=== PATIENT | female | born 1995 | race Caucasian/White ===

== ENCOUNTER 2018-10-05 07:28 | Emergency (ER) | payer MEDICAID ==
[~2018-10-05] VITALS: Ht 160 cm; Wt 89.4 kg
--- NOTE | 2018-10-05 07:41 | NUR ---
PT TO ER BED 9
[2018-10-05 07:42] VITALS: BP 125/72
--- NOTE | 2018-10-05 07:43 | NUR ---
BIB SELF. AAOX4. C/O NAUSEA AND VOMITING SINCE YESTERDAY AFTER EATING OUT AT A [employer]. NO FEVER. PT STATES DIZZINESS AND SOB AT TIMES. PT IS COOL TO TOUCH AND DIAPHORETIC. PT STATES HASN'T EATEN TODAY AND CANNOT TAKE FLUIDS DOWN. HOB UP. BED SIDE RAILS UP X1. ON LOW BED POSITION, LOCKED. ER MADE AWARE OF PT STATUS.
[2018-10-05] MEDS ORDERED: NACL 0.9% 1,000 ML IV SCH (08:12)
[2018-10-05] MEDS ORDERED: ONDANSETRON 4 MG/2 ML VIAL IVP ONE ×2 (08:15→09:35)
[2018-10-05] MEDS ORDERED: PANTOPRAZOLE 40 MG INJ VIAL IVP ONE (08:15)
[2018-10-05] MEDS ORDERED: DIPHENOXYLATE /ATROPINE 2.5 MG TAB PO ONE (08:15)
[2018-10-05 08:37] LABS: HEMATOCRIT 39.7 % (36-48); HEMOGLOBIN 12.8 g/dL (12.0-16.0); MEAN CORPUSCULAR HEMOGLOBIN 28 pg (27-31); MEAN CORPUSCULAR HGB CONC 32 g/dL (33-37); MEAN CORPUSCULAR VOLUME 85.5 fL (80-94); PLATELET COUNT (AUTO) 285 K/uL (140-450); RED BLOOD CELL COUNT(AUTO) 4.65 MIL/uL (4.20-5.40); RED CELL DISTRIBUTION WIDTH 14.6 % (11.6-13.7); WHITE BLOOD COUNT (AUTO) 20.2 K/uL (4.8-10.8)
[2018-10-05 08:52] LABS: ANION GAP 19.5 (8-16); CARBON DIOXIDE 20.9 mmol/L (21-32); CREATININE 0.8 mg/dL (0.6-1.3); EOSINOPHILS % (MANUAL) 1 % (0-4); LYMPHOCYTES % (MANUAL) 6 % (20-46); MONOCYTES % (MANUAL) 3 % (5-12); POTASSIUM 3.4 mmol/L (3.5-5.1)
[2018-10-05 08:58] LABS: ALBUMIN 3.9 g/dL (3.4-5.0); TOTAL BILIRUBIN 0.5 mg/dL (0.0-1.0)
--- NOTE | 2018-10-05 09:15 | NUR ---
Anthony swain in [facility] - 10/05/18 at 0918 by RAN REPORT MACIE FROM MAUREEN ROCHE RN OF CARE AT THIS TIME.
[2018-10-05] MEDS ORDERED: MAGNESIUM OXIDE 400 MG TAB PO ONE (09:35)
[2018-10-05] MEDS ORDERED: POTASSIUM CHLORIDE 20% 40 MEQ/15 ML UDC PO ONE (09:35)
[2018-10-05 10:55] VITALS: BP 125/72
--- NOTE | 2018-10-05 10:55 | NUR ---
Patient discharged with v/s stable. Written and verbal after care instructions given and explained. Patient alert, oriented and verbalized understanding of instructions. Ambulatory with steady gait. All questions addressed prior to discharge. ID band removed. Patient advised to follow up with PMD. Rx of Zofran, Lomotil given. Patient educated on indication of medication including possible reaction and side effects. Opportunity to ask questions provided and answered.
== END 2018-10-05 10:55 | disposition home or self-care (01) ==
LOC: MED 07:28
DX: R11.2 Nausea with vomiting, unspecified (principal); R19.7 Diarrhea, unspecified
CPT/HCPCS: 36415; 80053; 81002; 81025; 83690; 85025; 96361; 96374; 96375; 96376; 99284; C9113; J2405; J7030